=== PATIENT | female | born 2000 | race Caucasian/White ===

== ENCOUNTER 2018-12-24 08:16 | Day surgery (SDC) | payer OTHER ==
[2018-12-24] MEDS ORDERED: SOD CHLORIDE 0.9% 1,000 ML IV (09:30)
[2018-12-24] MEDS ORDERED: BUPIVACAINE 0.25% (MPF) 30 ML INJ (11:16)
[2018-12-24] MEDS ORDERED: DESFLURANE 15 MIN (12:53)
[2018-12-24] MEDS ORDERED: LIDOCAINE 2% (SDV) 5 ML INJ (12:53)
[2018-12-24] MEDS ORDERED: PROPOFOL 20 ML (12:53)
[2018-12-24] MEDS ORDERED: CEFAZOLIN 1 GM INJ (12:53)
[2018-12-24] MEDS ORDERED: MIDAZOLAM 1 MG/ML 2 ML INJ (12:54)
[2018-12-24] MEDS ORDERED: FENTAnyl 50 MCG/ML VIAL ×2 (12:54→13:37)
[2018-12-24] MEDS ORDERED: DEXAMETHASONE 4 MG/ML 5 ML INJ (13:18)
[2018-12-24] MEDS ORDERED: ONDANSETRON 4 MG INJ (13:18)
[2018-12-24] MEDS: BUPIVACAINE 0.25% (MPF) 30 ML INJ INJ ×2 (13:56)
[2018-12-24] MEDS ORDERED: IPRATROPIUM (NEB) 0.5 MG/2.5 ML AMP HHN (14:00)
[2018-12-24] MEDS ORDERED: HYDROmorphONE 1 MG/5 ML IV SYRINGE IV (14:00)
[2018-12-24] MEDS ORDERED: OXYCODONE/ACETAMINOPHEN (5/325) TAB PO (14:00)
[2018-12-24] MEDS ORDERED: LABETALOL HCL 20MG INJ IV (14:00)
[2018-12-24] MEDS ORDERED: hydrALAzine 20 MG INJ IV (14:00)
[2018-12-24] MEDS ORDERED: FENTAnyl 50 MCG/ML VIAL IV ×3 (14:00)
[2018-12-24] MEDS ORDERED: EPHEDrine 25 MG/5 ML SYG IV (14:00)
[2018-12-24] MEDS ORDERED: ALBUTEROL 0.083% (NEB) 2.5 MG/3 ML AMP HHN (14:00)
[2018-12-24] MEDS: MEPERIDINE 25 MG INJ IV (14:23)
[2018-12-24] MEDS: HYDROmorphONE 1 MG/5 ML IV SYRINGE IV ×2 (14:23→14:36)
[2018-12-24] MEDS: ONDANSETRON 4 MG INJ IV (14:23)
[2018-12-24] MEDS: OXYCODONE/ACETAMINOPHEN (5/325) TAB PO (14:24)
[2018-12-24] MEDS: HYDROCODONE/APAP (5/325) TAB PO (14:42)
[2018-12-24] MEDS: DIPHENHYDRAMINE 50 MG INJ IV (15:05)
== END 2018-12-24 16:50 | disposition home or self-care (01) ==
LOC: SDS 08:16
DX: K80.10 Calculus of gallbladder with chronic cholecystitis without obstruction (principal)
CPT/HCPCS: 47562; 88304; 88312